=== PATIENT | female | born 1990 | race Caucasian/White ===

== ENCOUNTER → 2023-11-29 | Outpatient (CLI) | payer OTHER | LOC: M LAB 11:05 | PROVIDERS: ATTEND Nurse Practitioner Family | DX: O20.0 Threatened abortion (principal) ==

== ENCOUNTER → 2023-12-13 | Outpatient (CLI) | payer OTHER | LOC: M LAB 09:17 | PROVIDERS: ATTEND Nurse Practitioner Family | DX: O20.0 Threatened abortion (principal) ==

== ENCOUNTER → 2023-12-21 | Outpatient (CLI) | payer OTHER | LOC: M LAB 09:01 | PROVIDERS: ATTEND Nurse Practitioner Family | DX: O03.9 Complete or unspecified spontaneous abortion without complication (principal); Z3A.00 Weeks of gestation of pregnancy not specified ==

== ENCOUNTER → 2023-12-27 | Outpatient (CLI) | payer OTHER | LOC: M LAB 09:12 | PROVIDERS: ATTEND Nurse Practitioner Family | DX: O03.9 Complete or unspecified spontaneous abortion without complication (principal); Z3A.00 Weeks of gestation of pregnancy not specified ==

== ENCOUNTER → 2024-05-08 | Outpatient (CLI) | payer OTHER | LOC: M LAB 15:46 | PROVIDERS: ATTEND Advanced Practice Midwife | DX: Z34.82 Encounter for supervision of other normal pregnancy, second trimester (principal); Z3A.17 17 weeks gestation of pregnancy ==

== ENCOUNTER → 2024-05-31 | Outpatient (CLI) | payer OTHER | LOC: M WHC 14:11 | PROVIDERS: ATTEND Advanced Practice Midwife | DX: Z36.89 Encounter for other specified antenatal screening (principal) ==